=== PATIENT | female | born 1935 | race Caucasian/White ===

== ENCOUNTER 2021-10-23 20:15 | Emergency (ER) | payer MEDICARE ==
[~2021-10-23] VITALS: Ht 149.9 cm; Wt 61.2 kg
[2021-10-23 20:45] VITALS: BP 169/89
[2021-10-23] MEDS ORDERED: TYLENOL PO STA (20:45)
--- NOTE | 2021-10-23 20:45 | NUR ---
blood drawn from left AC x 1 stick.
[2021-10-23 21:08] LABS: BASOPHIL # 0.1 10^3/uL (0.0-0.1); BASOPHIL % 1.2 % (0.0-0.2); EOSINOPHIL # 0.2 10^3/uL (0.0-0.2); EOSINOPHIL % 3.2 % (0.0-5.0); LYMPHOCYTES # 1.82 10^3/uL1 (1.0-4.8); LYMPHOCYTES % 30.7 % (24.0-44.0); MEAN CORP HGB 30.1 pg (26-34); MONOCYTES # 0.5 10^3/uL (0.3-0.8); MONOCYTES % 7.9 % (5.0-12.0); NEUTROPHIL # 3.4 10^3/uL (1.8-7.7); NEUTROPHILS % 56.8 % (41.0-85.0); PLATELET COUNT 219 10^3/uL (150-400); RED CELL DISTRIBUTION WIDTH 14.2 % (11.5-14.5)
[2021-10-23 21:27] LABS: CARBON DIOXIDE 29.1 mmol/L (20.0-32)
--- NOTE | 2021-10-23 21:29 | DIREP ---
PROCEDURE:CT HEAD OR BRAIN W/O CONTRAST COMPARISON:None. INDICATIONS:head injury TECHNIQUE:CT images were created without intravenous contrast. FINDINGS: VENTRICLES:There is mild prominence of the ventricles and cortical sulci consistent with age related involutional changes. CEREBRUM:Small foci of diminished attenuation in the supratentorial white matter consistent with mild leukoaraiosis. CEREBELLUM:Negative. BRAINSTEM:Negative. BASAL CISTERNS:Negative. HEMORRHAGE:No MASS LESION:No ACUTE INFARCT:No SKULL:Normal. SINUSES:Normal. OTHER:None CONCLUSION:Atrophy and white matter disease. No acute intracranial findings. Dictated by: Gutierrez Mckeon MD on 10/23/2021 at 09:26 PM
--- NOTE | 2021-10-23 21:52 | ER.PDOC ---
General Chief Complaint: Headache Stated Complaint: HEADACHE Time seen by MD: 18:40 Source: patient Exam Limitations: no limitations History of Present Illness Initial Comments 86-year-old female who was in the shower and hit her head on the shower farhad. No loss of consciousness. No laceration, small bump in the area. No headache, no nausea or vomiting. No grogginess or confusion. No blood thinners Occurred: just prior to arrival Where: home Severity: mild Location: frontal Method of Injury: direct blow Past Medical History Medical History: hypertension, thyroid disease, other Surgical History: hysterectomy, knee, tonsillectomy Social History Alcohol Use: none Drug Use: none Review of Systems All Other Systems: Reviewed and Negative Physical Exam General Appearance: Alert, No Apparent Distress Head: Contusions Eye: PERRL, EOMI ENT: Nml external inspection Neck: non-tender, painless ROM Cardiovascular/Respiratory: Regular Rate, Rhythm, Normal Peripheral Pulses Gastrointestinal: Soft Back: Normal Inspection Extremities: Normal Inspection, No Pedal Edema NEURO/PSYCH: Alert, Oriented x3, Cooperative Cranial Nerves: Normal Speech Motor/Sensory: No Motor Deficit, No Sensory Deficit Skin: Normal Color Lymphatic: No Adenopathy Jolynn Coma Score Best Eye Response: (4) Open Spontaneously Best Verbal Response: (5) Oriented Best Motor Response: (6) Obeys Commands Jolynn Total: 15 Results/Orders Results/Orders Orders - BHARTI OLEARY MD Ct Head Wo Contrast (10/23/21 20:45) Cbc With Auto Diff (10/23/21 20:45) Comprehensive Metabolic Panel (10/23/21 20:45) PT (10/23/21 20:45) Acetaminophen (Tylenol) (10/23/21 20:45) Vital Signs Date Time Temp Pulse Resp B/P (MAP) Pulse Ox O2 Delivery O2 Flow Rate FiO2 10/23/21 20:45 97.6 59 16 169/89 (115) 98 Room Air* 0 21 10/23/21 20:45 97.6 59 16 98 10/23/21 20:45 97.6 59 16 Laboratory Tests Test 10/23/21 20:58 White Blood Count 5.9 10^3/uL (4.5-11.0) Red Blood Count 4.38 10^6/uL (4.00-5.20) Hemoglobin 13.2 g/dL (12.0-15.0) Hematocrit 40.9 % (36.0-46.0) Mean Corpuscular Volume 93.4 fL (78-100) Mean Corpuscular Hemoglobin 30.1 pg (26-34) Mean Corpuscular Hemoglobin Concent 32.3 g/dL (33-36.5) L Red Cell Distribution Width 14.2 % (11.5-14.5) Platelet Count 219 10^3/uL (150-400) Mean Platelet Volume 11.2 fL (7.8-11.0) H Neutrophils (%) (Auto) 56.8 % (41.0-85.0) Lymphocytes (%) (Auto) 30.7 % (24.0-44.0) Monocytes (%) (Auto) 7.9 % (5.0-12.0) Neutrophils # (Auto) 3.4 10^3/uL (1.8-7.7) Lymphocytes # (Auto) 1.82 10^3/uL1 (1.0-4.8) Monocytes # (Auto) 0.5 10^3/uL (0.3-0.8) Absolute Immature Granulocyte (auto 0.01 10^3 u/L (0-2) Absolute Eosinophils (auto) 0.2 10^3/uL (0.0-0.2) Immature Granulocytes % 0.20 % (0.00-0.50) Eosinophils % 3.2 % (0.0-5.0) Basophils % 1.2 % (0.0-0.2) H Basophils # 0.1 10^3/uL (0.0-0.1) Prothrombin Time 10.1 SEC (9.1-11.5) Prothrombin Time INR (Non-Therap) 1.0 Sodium Level 143 mmol/L (132-145) Potassium Level 4.2 mmol/L (3.6-5.2) Chloride Level 108.0 mmol/L (96-109) Carbon Dioxide Level 29.1 mmol/L (20.0-32) Anion Gap 10.1 Blood Urea Nitrogen 23 mg/dL (7-18) H Creatinine 1.00 mg/dL (0.59-1.40) Estimated GFR () 63.6 (>/=60) Est GFR (CKD-EPI)(Non-Afr [place] Islander) 52.6 (>/=60) BUN/Creatinine Ratio 23.0 Glucose Level 94 mg/dL (70-110) Calcium Level 9.7 mg/dL (8.4-10.5) Total Bilirubin 0.2 mg/dL (0.2-1.0) Aspartate Amino Transferase (AST) 16 U/L (0-35) Alanine Aminotransferase (ALT) 19 U/L (12-78) Alkaline Phosphatase 64 U/L (50-136) Total Protein 7.4 g/dL (6.4-8.2) Albumin 3.8 g/dL (3.4-5.0) Globulin 3.6 Albumin/Globulin Ratio 1.055 Progress Progress She has no headache, normal CT, they came out of an abundance of caution. Counseled her on management of her scalp contusion ER DEPART Departure Time of Disposition: 19:51 Disposition: 01 HOME / SELF CARE / HOMELESS Impression: Primary Impression: Scalp contusion Condition: Stable Referrals: PCP,UNKNOWN (PCP) PRIMARY CARE PROVIDER Duration or Time Spent with Pa: BHARTI Dickey MD Oct 23, 2021 21:52
[2021-10-23 21:56] VITALS: BP 146/82
== END 2021-10-23 21:57 | disposition home or self-care (01) ==
LOC: ER 20:15
DX: S00.03XA Contusion of scalp, initial encounter (principal); E07.9 Disorder of thyroid, unspecified; I10 Essential (primary) hypertension; W18.00XA Striking against unspecified object with subsequent fall, initial encounter; Y93.89 Activity, other specified; Y92.009 Unspecified place in unspecified non-institutional (private) residence as the place of occurrence of the external cause; Y99.8 Other external cause status; Z90.710 Acquired absence of both cervix and uterus
CPT/HCPCS: 36415; 70450; 80053; 85025; 85610; 99284

== ENCOUNTER 2021-12-14 07:26 | Inpatient (IN) | payer MEDICARE ==
[~2021-12-14] VITALS: Ht 149.9 cm; Wt 63.2 kg
[2021-12-14 07:26] VITALS: BP 158/51
--- NOTE | 2021-12-14 07:26 | NUR ---
ARRIVAL PATIENT ARRIVED TO ED4 VIA GURNEY BY [facility], C/O CONGESTION,WEAKNESS AND CONFUSION, FAMILY CONCERNED AND CALLED EMS TO BRING TO THE ED FOR EVAL, EMS INITIATED A 20G TO THE LEFT AC INFUSING LR AND GAVE TYLENOL 1000MG BY MOUTH FOR FEVER, ASSISTED TO ED4 GURNEY, VITAL SIGNS TAKEN AND DOCTOR NOTIFIED OF PATIENT'S ARRIVAL.
[2021-12-14] MEDS ORDERED: TYLENOL PO STA (07:28)
--- NOTE | 2021-12-14 07:46 | ER.PDOC ---
General Chief Complaint: Requesting Medical Care Stated Complaint: GENERAL TRAVEL OUT OF US: No Time seen by MD: 07:35 Source: patient, family, EMS Exam Limitations: other (dementia) History of Present Illness Initial Comments 86 yo F has had some back pain and low grade fever this morning, more confused than usual (there is some baseline dementia.) Has had a mild cough for perhaps a week or more. Allergies: Coded Allergies: Macrolide Antibiotics (Verified Allergy, Unknown, 12/14/21) Penicillins (Verified Allergy, Unknown, ., 12/14/21) Sulfa (Sulfonamide Antibiotics) (Verified Allergy, Unknown, ., 12/14/21) adhesive (Verified Allergy, Unknown, 12/14/21) ciprofloxacin (Verified Allergy, Unknown, 12/14/21) lactase (Verified Allergy, Unknown, 12/14/21) nitrofurantoin (Verified Allergy, Unknown, 12/14/21) omeprazole (Verified Allergy, Unknown, 12/14/21) sulfamethoxazole (Verified Allergy, Unknown, ., 12/14/21) trimethoprim (Verified Allergy, Unknown, ., 12/14/21) Home Meds Reported Medications Fluoxetine Hcl (FLUOXETINE HCL) 10 Mg Capsule, 1 CAP PO DAILY, #30 CAP 12/14/21 Metoprolol Tartrate 50MG (LOPRESSER 50MG) 50 Mg Tablet, 1 TAB PO BID, #180 TAB 3 Refills 12/14/21 Levothyroxine Sodium (LEVOTHYROXINE SODIUM) 25 Mcg Tablet, 1 TAB PO DAILY, #90 TAB 3 Refills 12/14/21 Memantine Hcl (NAMENDA) 10 Mg Tablet, 1 TAB PO BID, #180 TAB 1 Refill 12/14/21 Quetiapine Fumarate (SEROQUEL) 25 Mg Tablet, 1 TAB PO HS, #30 TAB 12/14/21 Lisinopril (LISINOPRIL) 20 Mg Tablet, 1 TAB PO DAILY, #90 TAB 3 Refills 12/14/21 Past Medical History Medical History: hypertension, thyroid disease, other Surgical History: hysterectomy, knee, tonsillectomy Family History Significant Family History: no pertinent family hx Social History Smoking: non-smoker Drug Use: none Reviewed Nursing Reviewed: Vital Signs, Abn. Noted, Nursing Assessment Review of Systems Constitutional: fever EENTM: no symptoms reported Respiratory: cough (mild, x 1 week or more) Cardiovascular: no symptoms reported Gastrointestinal: denies abdominal pain Genitourinary: denies dysuria, denies frequency Musculoskeletal: back pain (lower, more lumbar and nonspecific in character) Skin: no symptoms reported Psychiatric/Neurological: see HPI (some modestly increased confusion from baseline) Hematologic/Lymphatic: no symptoms reported Immunological/Allergic: no symptoms reported All Other Systems: Reviewed and Negative Physical Exam General Appearance: No Apparent Distress EENT: eyes nml inspection Neck: Non-Tender Respiratory: chest non-tender, lungs clear (I don't note any coughing while I'm with patient) CVS: reg rate & rhythm Gastrointestinal: Normal Bowel Sounds, Non Tender Back: Normal Inspection (nothing radicular or particularly concerning about back pain) Extremities: Normal Range of Motion, Non-Tender Neurologic/Psychiatric: Alert, Other (no obvious deficit, seems benignly mild- moderately demented without focal neurologic deficit) Skin: Normal Color Results/Orders Results/Orders Orders - KAJAL ROBERT MD Covid19 Antigen Denise Stephanie (12/14/21 07:28) Cbc With Auto Diff (12/14/21 07:28) Comprehensive Metabolic Panel (12/14/21 07:28) Urinalysis (12/14/21 07:28) Xr Chest 1v (12/14/21 07:28) Acetaminophen (Tylenol) (12/14/21 07:28) Urine Culture (12/14/21 08:30) Ceftriaxone Sodium (Rocephin) (12/14/21 09:24) Ceftriaxone Sodium (Rocephin) (12/14/21 09:36) 0.9 % Sodium Chloride (Ns 100ml) (12/14/21 09:36) Vital Signs Date Time Temp Pulse Resp B/P (MAP) Pulse Ox O2 Delivery O2 Flow Rate FiO2 12/14/21 09:11 98.1 60 18 139/48 (78) 95 Room Air* 0 21 12/14/21 07:26 98.1 68 18 158/51 (86) 95 Room Air* 0 21 12/14/21 07:26 98.1 68 18 95 12/14/21 07:26 98.1 68 18 Administered Medications Medications (Trade) Dose Ordered Sig/Jonny Route PRN Reason Start Time Stop Time Status Last Admin Dose Admin Ceftriaxone Sodium 2000 mg/ Sodium Chloride 100 ml @ 200 mls/hr STAT STAT IV 12/14/21 09:24 12/14/21 09:53 UNV 12/14/21 09:32 200 MLS/HR Laboratory Tests Test 12/14/21 00:00 12/14/21 07:43 12/14/21 08:30 SARS-CoV-2 Antigen (Rapid) POSITIVE (NEGATIVE) *A White Blood Count 7.5 10^3/uL (4.5-11.0) Red Blood Count 3.94 10^6/uL (4.00-5.20) L Hemoglobin 11.9 g/dL (12.0-15.0) L Hematocrit 35.9 % (36.0-46.0) L Mean Corpuscular Volume 91.1 fL (78-100) Mean Corpuscular Hemoglobin 30.2 pg (26-34) Mean Corpuscular Hemoglobin Concent 33.1 g/dL (33-36.5) Red Cell Distribution Width 15.0 % (11.5-14.5) H Platelet Count 165 10^3/uL (150-400) Mean Platelet Volume 11.1 fL (7.8-11.0) H Neutrophils (%) (Auto) 77.8 % (41.0-85.0) Lymphocytes (%) (Auto) 11.8 % (24.0-44.0) L Monocytes (%) (Auto) 10.0 % (5.0-12.0) Neutrophils # (Auto) 5.8 10^3/uL (1.8-7.7) Lymphocytes # (Auto) 0.88 10^3/uL1 (1.0-4.8) L Monocytes # (Auto) 0.8 10^3/uL (0.3-0.8) Absolute Immature Granulocyte (auto 0.01 10^3 u/L (0-2) Absolute Eosinophils (auto) 0.0 10^3/uL (0.0-0.2) Immature Granulocytes % 0.10 % (0.00-0.50) Eosinophils % 0.0 % (0.0-5.0) Basophils % 0.3 % (0.0-0.2) H Basophils # 0.0 10^3/uL (0.0-0.1) Sodium Level 141 mmol/L (132-145) Potassium Level 3.6 mmol/L (3.6-5.2) Chloride Level 107.0 mmol/L (96-109) Carbon Dioxide Level 23.9 mmol/L (20.0-32) Anion Gap 13.7 Blood Urea Nitrogen 14 mg/dL (7-18) Creatinine 1.02 mg/dL (0.59-1.40) Estimated GFR () 62.2 (>/=60) Est GFR (CKD-EPI)(Non-Afr [place]) 51.4 (>/=60) BUN/Creatinine Ratio 13.0 Glucose Level 116 mg/dL (70-110) H Calcium Level 8.8 mg/dL (8.4-10.5) Total Bilirubin 0.5 mg/dL (0.2-1.0) Aspartate Amino Transferase (AST) 22 U/L (0-35) Alanine Aminotransferase (ALT) 17 U/L (12-78) Alkaline Phosphatase 57 U/L (50-136) Total Protein 6.5 g/dL (6.4-8.2) Albumin 3.1 g/dL (3.4-5.0) L Globulin 3.4 Albumin/Globulin Ratio 0.911 Urine Collection Type UNKNOWN Urine Color YELLOW Urine Appearance CLOUDY Urine Bilirubin NEGATIVE (NEGATIVE) Urine Ketones NEGATIVE (NEGATIVE) Urine Specific Caroline 1.020 (1.005-1.030) Urine pH 5.5 (4.5-8.0) Urine Protein NEGATIVE (NEGATIVE) Urine Urobilinogen 0.2 E.U./dL (0.2) Urine Nitrate NEGATIVE (NEGATIVE) Urine Leukocyte Esterase 1+ (NEGATIVE) H Urine Glucose (Auto)(UA) NEGATIVE (NEGATIVE) Urine Blood TRACE-INTACT (NEGATIVE) H Urine RBC 0-2 RBC/HPF (NONE SEEN) Urine WBC TooNumerousToCount WBC/HPF (0-2) Urine Squamous Epithelial Cells FEW (<=FEW) Urine Bacteria MANY (NONE SEEN) H Progress Progress Florid UTI, as we had suspected. Incidentally Covid positive, symptoms greater than a week, fully vaccinated with last dose this past spring - nothing really to be done there. There is desire from the daughter to give treatment of some kind for the Covid positivity; daughter indicates that contrary to her mother's assertion of weeklong symptoms, she's only had a cough for a day or so. I have reviewed our options. Pt will require admission for IV antibiotics for the UTI and weakness therefrom. The CXR, RA sat, and lung exam are clear. Neither bebtelovimab nor Paxlovid are authorized for inpatient use, and admission is necessary. I have therefore discussed remdesivir with the hospitalist, but he advises against its use because of limited benefit and multiple side effects. I will apprise family; we will proceed with admission. EKG/XRAY/CT/US XRAY: chest XRAY Comments: NAD ER DEPART Departure Time of Disposition: 10:10 Disposition: 02 SHORT TERM HOSPITAL Impression: Primary Impression: COVID-19 Additional Impression: Urinary tract infection Condition: Improved Referrals: PCP,UNKNOWN (PCP) PRIMARY CARE PROVIDER Duration or Time Spent with Pa: 20 Problem Qualifiers KAJAL ROBERT MD Dec 14, 2021 07:46
[2021-12-14 07:48] LABS: BASOPHIL % 0.3 % (0.0-0.2); LYMPHOCYTES # 0.88 10^3/uL1 (1.0-4.8); LYMPHOCYTES % 11.8 % (24.0-44.0); MEAN CORP HGB 30.2 pg (26-34); MONOCYTES # 0.8 10^3/uL (0.3-0.8); NEUTROPHIL # 5.8 10^3/uL (1.8-7.7); NEUTROPHILS % 77.8 % (41.0-85.0)
[2021-12-14 08:04] LABS: CARBON DIOXIDE 23.9 mmol/L (20.0-32)
[2021-12-14] MEDS ORDERED: FLUO10CA17 PO (08:07)
[2021-12-14] MEDS ORDERED: LISI20TA21 PO (08:07)
[2021-12-14] MEDS ORDERED: LEVO25TA4 PO (08:07)
[2021-12-14] MEDS ORDERED: METO50TA6 PO (08:07)
[2021-12-14] MEDS ORDERED: QUET25TA5 PO (08:07)
[2021-12-14] MEDS ORDERED: MEMA10TA PO (08:07)
--- NOTE | 2021-12-14 08:09 | DIREP ---
PROCEDURE:CHEST 1 VIEW COMPARISON:None. INDICATIONS:cough FINDINGS: LUNGS/PLEURA:Reticular interstitial scarring in the lungs and/or interstitial edema. No focal consolidation. VASCULATURE:Mild pulmonary vascular prominence. CARDIAC:Borderline cardiomegaly. MEDIASTINUM:Aortic knob calcifications. BONES:Bilateral shoulder girdle degenerative changes. OTHER:Negative. CONCLUSION: 1. Increased reticular interstitial prominence either scarring, interstitial edema or combination thereof. 2. Mild pulmonary vascular prominence possibly accentuated by portable technique, correlate for clinical evidence of mild CHF. Dictated by: Delgado Reno M.D. on 12/14/2021 at 08:07 AM
[2021-12-14 08:51] LABS: BILIRUBIN,URINE NEGATIVE (NEGATIVE); UROBILINOGEN,URINE 0.2 E.U./dL (0.2)
--- NOTE | 2021-12-14 09:00 | NUR ---
MONIQUE ROBERT ATTEMPTED TO CALL DOCTOR AMAYA, LEFT MESSAGE.
[2021-12-14 09:11] VITALS: BP 139/48
[2021-12-14] MEDS ORDERED: ROCEPHIN 2,000 MG in NS 100ML 100 ML IV STA (09:24)
[2021-12-14] MEDS ORDERED: ROCEPHIN ONE (09:36)
[2021-12-14] MEDS ORDERED: NS 100ML 100 ML IV ONE (09:36)
--- NOTE | 2021-12-14 10:01 | NUR ---
MONIQUE ROBERT ON THE PHONE WITH DOCTOR AMAYA AT THIS TIME.
[2021-12-14] MEDS ORDERED: NS 1000ML 1,000 ML IV STA (10:10)
--- NOTE | 2021-12-14 10:40 | NUR ---
INTAKE PATIENT GIVEN CRACKERS,APPLESAUSE AND BREAKFAST BAR, FAMILY AT BEDSIDE ASSISTING AT THIS TIME.
[2021-12-14 10:47] VITALS: BP 126/54
--- NOTE | 2021-12-14 11:45 | NUR ---
ARRIVAL RECEIVED PT ON UNIT TO ROOM 302 FROM ER AT THIS TIME VIA STRETCHER. PT TRANSFERRED TO BED IN ROOM ACCOMPANIED BY THIS NURSE, GEORGE MOSER, AND GEORGE SPANGLER. PT SHOWS NO S/S OF ACUTE DISTRESS. BED IN LOWEST POSITION, LOCKED, SIDE RAILS X2, CALL LIGHT WITHIN REACH. RECEIVED REPORT FROM GEORGE SPANGLER. THIS NURSE INITIATED ADMISSION PER PROTOCOL.
[2021-12-14 12:11] VITALS: BP 149/56
[2021-12-14] MEDS ORDERED: D5W 1000ML 1,000 ML ONE (13:36)
[2021-12-14] MEDS ORDERED: TYLENOL PO PRN (14:00)
[2021-12-14] MEDS: D5W-1/2NS 1000ML 1,000 ML IV SCH (14:26)
[2021-12-14] MEDS: PEPCID PO SCH (15:30)
[2021-12-14] MEDS ORDERED: PEPCID ONE (15:30)
[2021-12-14 16:19] VITALS: BP 142/62
[2021-12-14 20:28] VITALS: BP 169/67
[2021-12-14] MEDS: LOPRESSOR PO SCH (21:34)
[2021-12-14] MEDS: SEROQUEL PO SCH (21:34)
[2021-12-14] MEDS: NAMENDA PO SCH (21:34)
[2021-12-15 01:05] VITALS: BP 151/59
[2021-12-15] MEDS: D5W-1/2NS 1000ML 1,000 ML IV SCH ×2 (02:50→16:10)
[2021-12-15 04:39] VITALS: BP 111/53
[2021-12-15 05:10] LABS: BASOPHIL % 0.1 % (0.0-0.2); LYMPHOCYTES # 1.35 10^3/uL1 (1.0-4.8); LYMPHOCYTES % 17.8 % (24.0-44.0); MEAN CORP HGB 29.7 pg (26-34); MONOCYTES # 0.8 10^3/uL (0.3-0.8); MONOCYTES % 10.4 % (5.0-12.0); NEUTROPHIL # 5.4 10^3/uL (1.8-7.7); NEUTROPHILS % 71.7 % (41.0-85.0); PLATELET COUNT 145 10^3/uL (150-400); RED CELL DISTRIBUTION WIDTH 15.4 % (11.5-14.5)
[2021-12-15 05:28] LABS: CARBON DIOXIDE 21.6 mmol/L (20.0-32)
[2021-12-15] MEDS: LEVOTHYROXINE SODIUM PO SCH (06:04)
[2021-12-15 08:00] VITALS: BP 136/55
[2021-12-15] MEDS ORDERED: KCL 20MEQ/100ML 100 ML IV STA (08:18)
[2021-12-15] MEDS ORDERED: POTASSIUM CHLORIDE PO ONE (08:30)
[2021-12-15] MEDS: VITAMIN C PO SCH (08:49)
[2021-12-15] MEDS: NAMENDA PO SCH ×2 (08:49→21:07)
[2021-12-15] MEDS: PROZAC PO SCH (08:49)
[2021-12-15] MEDS: ZINC SULFATE PO SCH (08:49)
[2021-12-15] MEDS: LOPRESSOR PO SCH ×2 (08:50→21:07)
[2021-12-15] MEDS: ZESTRIL PO SCH (08:51)
[2021-12-15] MEDS: ROCEPHIN 1,000 MG in NS 100ML 100 ML IV SCH (09:15)
[2021-12-15] MEDS: PEPCID PO SCH ×2 (09:16→17:40)
[2021-12-15 12:00] VITALS: BP 122/60
[2021-12-15] MEDS ORDERED: NS IV SCH (12:00)
[2021-12-15] MEDS ORDERED: VANCOMYCIN HCL IV SCH (12:00)
[2021-12-15] MEDS ORDERED: VANCOMYCIN HCL 1 GM in NS 250ML 250 ML IV SCH (12:00)
--- NOTE | 2021-12-15 12:00 | PCM.HP ---
History of Present Illness Reason for Visit: Weakness and altered mental status History of Present Illness 86 yo F With past medical history of hypertension, hypothyroidism, dementia, among others was brought to the emergency room by her daughter with more confused than usual (there is some baseline dementia.) Has had a mild cough for perhaps a week or more. Patient tested positive for COVID-19. Patient also found to have UTI.Septic work-up done.Started on IV antibiotic.Patient is being admitted to hospital for further management. Today urine culture growing gram-positive cocci Awaiting ID and sensitivity. Family history reviewed and noncontributory On physical exam Vital Signs Date Time Temp Pulse Resp B/P (MAP) Pulse Ox O2 Delivery O2 Flow Rate FiO2 12/15/21 09:44 Room Air 0.00 12/15/21 08:51 111/53 12/15/21 08:00 98.4 60 18 92 21 Awake, following simple commands oriented x1 Head and neck normocephalic atraumatic, Dry mucous membrane Neck is supple no JVD Chest fair bilateral air entry Heart S1-S2 regularSounds present Genitourinary suprapubic tenderness Abdomen soft mild suprapubic tenderness Neuro awake, oriented x1, moving extremity Psych unable to assess Past Medical History Cardiac: HTN SURVEILLANCE DUAL RATE OFFICER: Dementia Endocrine: Hypothyroidism Past Surgical History: No pertinent hx Past Social History Smoke: No Alcohol: none Drugs: None Lives: with Family Review of Systems Constitutional: Other (Unable to obtain due to patient medical condition.) Allergies: Coded Allergies: Macrolide Antibiotics (Verified Allergy, Unknown, 12/14/21) Penicillins (Verified Allergy, Unknown, ., 12/14/21) Sulfa (Sulfonamide Antibiotics) (Verified Allergy, Unknown, ., 12/14/21) adhesive (Verified Allergy, Unknown, 12/14/21) ciprofloxacin (Verified Allergy, Unknown, 12/14/21) lactase (Verified Allergy, Unknown, 12/14/21) nitrofurantoin (Verified Allergy, Unknown, 12/14/21) omeprazole (Verified Allergy, Unknown, 12/14/21) sulfamethoxazole (Verified Allergy, Unknown, ., 12/14/21) trimethoprim (Verified Allergy, Unknown, ., 12/14/21) Scheduled Fluoxetine Hcl (Fluoxetine Hcl), 1 CAP PO DAILY, (Reported) Levothyroxine Sodium (Levothyroxine Sodium), 1 TAB PO DAILY, (Reported) Lisinopril (Lisinopril), 1 TAB PO DAILY, (Reported) Memantine Hcl (Namenda), 1 TAB PO BID, (Reported) Metoprolol Tartrate 50MG (Lopresser 50MG), 1 TAB PO BID, (Reported) Quetiapine Fumarate (Seroquel), 1 TAB PO HS, (Reported) Assessment/Plan Assessment/Plan Assessment/Plan 86 yo F With past medical history of hypertension, hypothyroidism, dementia, among others was brought to the emergency room by her daughter with more confused than usual (there is some baseline dementia.) Has had a mild cough for perhaps a week or more. Patient tested positive for COVID-19. Patient also found to have UTI.Septic work-up done.Started on IV antibiotic.Patient is being admitted to hospital for further management. Today urine culture growing gram-positive cocci Awaiting ID and sensitivity. Plan Admit Septic work-up was done Continue IV antibiotics,Ceftriaxone, will add vancomycin, urine culture positive cocci, still awaiting ID and sensitivity IV fluids Reconcile home meds GI and DVT prophylaxis as appropriate Expect length of stay more than 1 midnight Case discussed with ED physician and patient daughter Problems: (1) Metabolic encephalopathy ICD Code: G93.41 - Metabolic encephalopathy SNOMED: 77286328 (2) Dementia ICD Code: F03.90 - Unspecified dementia, unspecified severity, without behavioral disturbance, psychotic disturbance, mood disturbance, and anxiety SNOMED: 16005598 (3) COVID-19 ICD Code: U07.1 - COVID-19 SNOMED: 536580246 (4) Urinary tract infection ICD Code: N39.0 - Urinary tract infection, site not specified SNOMED: 49472293 (5) Hypothyroidism ICD Code: E03.9 - Hypothyroidism, unspecified SNOMED: 48139353 (6) Hypertension ICD Code: I10 - Essential (primary) hypertension SNOMED: 62989895 MONIQUE BLANK MD Dec 15, 2021 12:00
--- NOTE | 2021-12-15 16:22 | NUR ---
DISCHARGE PLANNING- HOME WITH DAUGHTER CM VISITED WITH DAUGHTER CASSY BY PHONE. PER DAUGHTER CASSY PATIENT LIVES IN [place] AND IS HERE VISITING. PT HAS BEEN HERE BOUT 6 WEEKS SINCE THE END OF OCTOBER AND THE PLAN WAS FOR HER TO GO BACK TO HER HOME WITH THE OTHER DAUGHTER THAT LIVES WITH PATIENT. PT HAS A WALKING SHOWER AT HER HOME BUT AT [facility] SHE USES A SHOWER CHAIR AND A WALKER WHEN AMBULATING. PCP IS IN [place] AND SHE DOES NOT HAVE THE NAME. CM EDUCATED ON SNF AND HH. CASSY VERBALLY DECLINED ADDITIONAL RESOURCES AT THIS TIME. DISCHARGE GOAL IS FOR PATIENT TO D/C WITH CASSY TO HER HOME AND WHEN PATIENT READY CASSY WILL TRANSPORT HER TO [place] AND GET HER A FOLLOW UP WITH HER PCP. NO FURTHER NEEDS NOTED AT THIS TIME.
[2021-12-15] MEDS ORDERED: KCL 20MEQ/100ML 100 ML IV ONE (17:00)
[2021-12-15 19:27] VITALS: BP 147/66
[2021-12-15] MEDS: SEROQUEL PO SCH (21:07)
[2021-12-15 23:49] VITALS: BP 146/56
[2021-12-16] MEDS: D5W-1/2NS 1000ML 1,000 ML IV SCH (02:02)
[2021-12-16] MEDS: LEVOTHYROXINE SODIUM PO SCH (06:44)
[2021-12-16 08:00] VITALS: BP 135/70
[2021-12-16 08:30] LABS: BASOPHIL % 0.4 % (0.0-0.2); EOSINOPHIL # 0.1 10^3/uL (0.0-0.2); EOSINOPHIL % 2.1 % (0.0-5.0); LYMPHOCYTES # 1.25 10^3/uL1 (1.0-4.8); LYMPHOCYTES % 23.9 % (24.0-44.0); MEAN CORP HGB 29.7 pg (26-34); MONOCYTES # 0.5 10^3/uL (0.3-0.8); MONOCYTES % 10.2 % (5.0-12.0); NEUTROPHIL # 3.3 10^3/uL (1.8-7.7); NEUTROPHILS % 63.2 % (41.0-85.0); PLATELET COUNT 139 10^3/uL (150-400); RED CELL DISTRIBUTION WIDTH 15.3 % (11.5-14.5)
[2021-12-16 08:39] LABS: CARBON DIOXIDE 24.5 mmol/L (20.0-32)
[2021-12-16] MEDS: PROZAC PO SCH (08:46)
[2021-12-16] MEDS: NAMENDA PO SCH ×2 (08:46→21:23)
[2021-12-16] MEDS: ROCEPHIN 1,000 MG in NS 100ML 100 ML IV SCH (08:46)
[2021-12-16] MEDS: PEPCID PO SCH ×2 (08:46→17:32)
[2021-12-16] MEDS: ZINC SULFATE PO SCH (08:47)
[2021-12-16] MEDS: ZESTRIL PO SCH (08:47)
[2021-12-16] MEDS: LOPRESSOR PO SCH ×2 (08:47→21:23)
[2021-12-16] MEDS: VITAMIN C PO SCH (08:47)
--- NOTE | 2021-12-16 10:24 | PRM.PN ---
Subjective Subjective Date: Dec 16, 2021 Time: 09:00 Subjective Patient daughter that her mother sounds more congested today.Also she thinks that the patient is more confused than her baseline. Patient does not complain. Will get chest x-ray. I will hold IV fluids for now.Urine culture growing gram- positive organism, ID and sensitivity pending. Currently on IV vancomycin and ceftriaxone awaiting CT results Patient History: Patient reports no known family medical history. Review of Systems Constitutional: Other (Unable to obtain due to patient medical condition.) Allergies: Coded Allergies: Macrolide Antibiotics (Verified Allergy, Unknown, 12/14/21) Penicillins (Verified Allergy, Unknown, ., 12/14/21) Sulfa (Sulfonamide Antibiotics) (Verified Allergy, Unknown, ., 12/14/21) adhesive (Verified Allergy, Unknown, 12/14/21) ciprofloxacin (Verified Allergy, Unknown, 12/14/21) lactase (Verified Allergy, Unknown, 12/14/21) nitrofurantoin (Verified Allergy, Unknown, 12/14/21) omeprazole (Verified Allergy, Unknown, 12/14/21) sulfamethoxazole (Verified Allergy, Unknown, ., 12/14/21) trimethoprim (Verified Allergy, Unknown, ., 12/14/21) Scheduled Fluoxetine Hcl (Fluoxetine Hcl), 1 CAP PO DAILY, (Reported) Levothyroxine Sodium (Levothyroxine Sodium), 1 TAB PO DAILY, (Reported) Lisinopril (Lisinopril), 1 TAB PO DAILY, (Reported) Memantine Hcl (Namenda), 1 TAB PO BID, (Reported) Metoprolol Tartrate 50MG (Lopresser 50MG), 1 TAB PO BID, (Reported) Quetiapine Fumarate (Seroquel), 1 TAB PO HS, (Reported) Objective Vitals and I/O Vital Sign - Last 24 Hours 12/15/21 12/15/21 12/15/21 12/15/21 11:00 12:00 17:54 19:27 Temp 98.0 99.0 Pulse 61 56 Resp 18 16 18 B/P (MAP) 122/60 (80) 147/66 (93) Pulse Ox 93 95 O2 Delivery Room Air Room Air* Room Air* Room Air* O2 Flow Rate 0.00 0 0 0 FiO2 21 21 21 10/7/12/15/21 12/16/21 12/16/21 19:42 23:49 08:31 08:47 Temp 97.9 Pulse 60 Resp 18 B/P (MAP) 146/56 (86) 111/53 Pulse Ox 97 O2 Delivery Room Air Room Air* Room Air O2 Flow Rate 0.00 0 FiO2 21 Intake and Output 12/16/21 07:00 Intake Total 472 ml Balance 472 ml General: Alert, No acute distress HEENT: Atraumatic, PERRLA Neck: Supple Lungs: Other (Diminished air entry both bases.) Heart: Regular rate, Normal S1, Normal S2 Abdomen: Normal bowel sounds, Other (Mild distention) Extremities: No clubbing, No cyanosis Skin: No significant lesion Neuro: Normal speech, Normal tone, Other (Moving extremities) Psych/Mental Status: Mood NL All Results(Lab/Rad) Laboratory Tests Test 12/16/21 08:20 White Blood Count 5.2 10^3/uL Red Blood Count 3.67 10^6/uL Hemoglobin 10.9 g/dL Hematocrit 34.2 % Mean Corpuscular Volume 93.2 fL Mean Corpuscular Hemoglobin 29.7 pg Mean Corpuscular Hemoglobin Concent 31.9 g/dL Red Cell Distribution Width 15.3 % Platelet Count 139 10^3/uL Mean Platelet Volume 11.4 fL Neutrophils (%) (Auto) 63.2 % Lymphocytes (%) (Auto) 23.9 % Monocytes (%) (Auto) 10.2 % Neutrophils # (Auto) 3.3 10^3/uL Lymphocytes # (Auto) 1.25 10^3/uL1 Monocytes # (Auto) 0.5 10^3/uL Absolute Immature Granulocyte (auto 0.01 10^3 u/L Absolute Eosinophils (auto) 0.1 10^3/uL Immature Granulocytes % 0.20 % Eosinophils % 2.1 % Basophils % 0.4 % Basophils # 0.0 10^3/uL Sodium Level 143 mmol/L Potassium Level 3.5 mmol/L Chloride Level 110.0 mmol/L Carbon Dioxide Level 24.5 mmol/L Glucose Level 102 mg/dL Blood Urea Nitrogen 8 mg/dL Creatinine 0.83 mg/dL Calcium Level 8.1 mg/dL Anion Gap 12.0 Estimated GFR () 78.9 Est GFR (CKD-EPI)(Non-Afr Canadian) 65.2 BUN/Creatinine Ratio 9.0 Current Medications Medications (Trade) Dose Ordered Sig/Jonny Route PRN Reason Start Time Stop Time Status Last Admin Dose Admin Acetaminophen (Tylenol) 500 mg STAT STAT PO 12/14/21 07:28 12/14/21 07:35 DC Ceftriaxone Sodium 2000 mg/ Sodium Chloride 100 ml @ 200 mls/hr STAT STAT IV 12/14/21 09:24 12/14/21 10:41 DC 12/14/21 09:32 Ceftriaxone Sodium (Rocephin) 1,000 mg STK-MED ONCE .ROUTE 12/14/21 09:36 12/14/21 09:37 DC Sodium Chloride 100 ml @ ud STK-MED ONCE IV 12/14/21 09:36 12/14/21 09:37 DC Sodium Chloride 1,000 ml @ 0 mls/hr Q0M STAT IV 12/14/21 10:10 12/14/21 10:41 DC 12/14/21 10:34 Fluoxetine HCl (Prozac) 10 mg DAILY PO 12/15/21 09:00 01/14/22 08:59 12/16/21 08:46 Levothyroxine Sodium (Levothyroxine Sodium) 25 mcg ACB PO 12/15/21 06:30 01/14/22 06:29 12/16/21 06:44 Lisinopril (Zestril) 20 mg DAILY PO 12/15/21 09:00 01/14/22 08:59 12/16/21 08:47 Miscellaneous Medication (Namenda) 10 mg BID PO 12/14/21 21:00 01/13/22 20:59 12/16/21 08:46 Metoprolol Tartrate (Lopressor) 50 mg BID PO 12/14/21 21:00 01/13/22 20:59 12/16/21 08:47 Quetiapine Fumarate (Seroquel) 25 mg HS PO 12/14/21 21:00 01/13/22 20:59 12/15/21 21:07 Ascorbic Acid (Vitamin C) 500 mg DAILY PO 12/15/21 09:00 01/14/22 08:59 12/16/21 08:47 Zinc Sulfate (Zinc Sulfate) 220 mg DAILY PO 12/15/21 09:00 01/14/22 08:59 12/16/21 08:47 Ceftriaxone Sodium 1000 mg/ Sodium Chloride 100 ml @ 100 mls/hr Q24HRS IV 12/15/21 09:00 01/14/22 08:59 12/16/21 08:46 Acetaminophen (Tylenol) 325 mg Q4H PRN PO PAIN 1 - 3 12/14/21 14:00 01/13/22 13:59 12/16/21 02:20 Famotidine (Pepcid) 20 mg BIDAC PO 12/14/21 16:30 01/13/22 16:29 12/16/21 08:46 Dextrose 1,000 ml @ ud STK-MED ONCE .ROUTE 12/14/21 13:36 12/14/21 13:36 DC Famotidine (Pepcid) 20 mg STK-MED ONCE .ROUTE 12/14/21 15:30 12/14/21 15:30 DC Potassium Chloride (Potassium Chloride) 20 meq OT ONCE PO 12/15/21 08:30 12/15/21 08:35 DC 12/15/21 08:49 Potassium Chloride 100 ml @ 50 mls/hr STAT STAT IV 12/15/21 08:18 12/15/21 15:51 DC Vancomycin HCl 0.95 gm/Sodium Chloride 250 ml @ 175 mls/hr Q12H IV 12/15/21 12:00 12/15/21 11:58 DC Vancomycin HCl 1 gm/Sodium Chloride 250 ml @ 175 mls/hr Q12H IV 12/15/21 12:00 12/15/21 14:48 DC 12/15/21 12:11 Potassium Chloride 100 ml @ 50 mls/hr OT ONCE IV 12/15/21 17:00 12/15/21 18:59 DC 12/15/21 17:41 Assessment/Plan Assessment/Plan Assessment/Plan 86 yo F With past medical history of hypertension, hypothyroidism, dementia, among others was brought to the emergency room by her daughter with more confus ed than usual (there is some baseline dementia.) Has had a mild cough for perhaps a week or more. Patient tested positive for COVID-19. Patient also found to have UTI.Septic work-up done.Started on IV antibiotic.Patient is being admitted to hospital for further management. Today urine culture growing gram-positive cocci Awaiting ID and sensitivity. Plan Admit Septic work-up was done Continue IV antibiotics,Ceftriaxone, will add vancomycin, urine culture positive cocci, still awaiting ID and sensitivity IV fluids Reconcile home meds GI and DVT prophylaxis as appropriate Expect length of stay more than 1 midnight Case discussed with ED physician and patient daughter 12/16/2021 Patient daughter that her mother sounds more congested today.Also she thinks rekha t the patient is more confused than her baseline. Patient does not complain. Will get chest x-ray. I will hold IV fluids for now.Urine culture growing gram- positive organism, ID and sensitivity pending. Currently on IV vancomycin and ceftriaxone awaiting CT results Continue IV antibiotics, awaiting ID and sensitivity results Will hold IV fluids, Daughter concerned that the patient sounds more congested Will get chest x-ray and reassess Check BNP GI and DVT prophylaxis Disposition, continue inpatient management pending clinical improvement Case discussed with daughter Problems: (1) Metabolic encephalopathy Status: Acute ICD Code: G93.41 - Metabolic encephalopathy SNOMED: 65493835 (2) COVID-19 Status: Acute ICD Code: U07.1 - COVID-19 SNOMED: 931086911 (3) Urinary tract infection Status: Acute ICD Code: N39.0 - Urinary tract infection, site not specified SNOMED: 49037565 (4) Hypertension Status: Chronic ICD Code: I10 - Essential (primary) hypertension SNOMED: 66993951 (5) Hypothyroidism Status: Chronic ICD Code: E03.9 - Hypothyroidism, unspecified SNOMED: 25919013 (6) Dementia Status: Chronic ICD Code: F03.90 - Unspecified dementia, unspecified severity, without behavioral disturbance, psychotic disturbance, mood disturbance, and anxiety SNOMED: 50990352 MONIQUE BLANK MD Dec 16, 2021 10:24
--- NOTE | 2021-12-16 11:28 | DIET.OP ---
Nutrition Asmt/Malnutrit 2-17 Actual Date of Review: Dec 16, 2021 Actual Time Reviewed Asmt: 11:22 Nutritional Screening: Malnutr/Diet Consult Diagnosis: COViD 19, Metobolic Encephalopathy, Dementia, UTI, HTN Pertinent Medical Hx/Surgical: HTN, Hypothyrodism, Dementia Subjective Information: 86 yo female, presented increased congestion, more confused. Current Diet Order/Nutrition S: Cardiac Patient /S.O: Not Indicated Pertinent Meds Prozac, Levothyroxine, Zestril, Lopressor, Seroquel, Vit C, Tylenol, Pepcid. Pertinent Labs Hgb 10.9L, Hct 4.2L, Na+ 145, K+ 3.5L, BUN 8, Cr. 83, Glu 102, Ca+ 8.1, TP 5.8L, Alb 2.6L Height (Inches): 59 Current Weight: 140 %IBW: 147 Recent Weight Change: No Weight Status: Overweight GI Symptoms: None Food Allergies: No Cultural/Ethnic/Orthodox [place]: unknown Usual Diet at Home: regular Skin Integrity/Comment: Yes (skin intact) Current %PO: Can't Poor(25-49%) (41% x 3 meals) BEE in Kcals: Use Current Weight Calories/Kcals/K-30 Kcals Calculated: 2255-0686 Protein: Use Current Weight Protein g/k.1-1.3 Protein Calculated: 69-83 Fluid: ml: 5854-7940 (25-30) or per MD order Nutritional Problem: No Cur. Nutritional Probl Problems: Nutrition Deficit Riskj increaed chance of inadequate food/nutrients Etiology: Predicted suboptimal intake related to increased confusion Signs/Symptoms: as evidenced by poor PO intake 41% Food and Nutrition Intake (Sev: <50% est energy req 5days (41% x 3 meals) Fluid Accumulation (N/A): N/A Reduced Ambulette Driver Strength (N/A): N/A Protein-Calorie Malnutrition: N/A Malnutrition Related to Morbid: No Recommendations by RD: Increase Calorie Intake (Boost TID) RD Comments: PO intake poor, 41%, Recommend Boost TID. Expected Outcomes Stable with adequate hydration, skin integrity, labs WNL, PO intake > 75%, nutrition needs met within three days. Serum Albumin g/dl: 2.4-3.0 Moderate) Malnutrtion/Nutrition Risk Edu: No moderate nutrition risk RD Follow-Up Date: Dec 19, 2021 Notificiation Needed?: Yes (Boost TID) TY ANTON Dec 16, 2021 11:28
--- NOTE | 2021-12-16 12:50 | DIREP ---
PROCEDURE:CHEST 1 VIEW COMPARISON:[facility], CR, XRAY CHEST SINGLE VW, 12/14/2021, 07:40 AM. INDICATIONS:SHORTNESS OF BREATH/COUGH FINDINGS: LUNGS/PLEURA:No significant pulmonary parenchymal abnormalities. No effusions. VASCULATURE:Normal. Unremarkable pulmonary vasculature. CARDIAC:Normal. No cardiac silhouette abnormality or cardiomegaly. MEDIASTINUM:Calcified aorta. BONES:Degenerative change. OTHER:Negative. CONCLUSION:No acute pulmonary process. Dictated by: Mannie Blood M.D. on 12/16/2021 at 12:48 PM
[2021-12-16] MEDS: VANCOMYCIN 750 MG/150 ML BAG 150 ML IV SCH (12:52)
[2021-12-16 18:00] VITALS: BP 124/84
[2021-12-16 20:23] VITALS: BP 176/72
[2021-12-16] MEDS: SEROQUEL PO SCH (21:24)
--- NOTE | 2021-12-17 03:49 | NUR ---
PT EXPERIENCING MULTIPLE MUSCLE SPAMS TO LEFT THIGH, HOSPITALIST NOTIFIED, ORDER RECEIVED, WILL CONTINUE PLAN OF CARE.
[2021-12-17] MEDS ORDERED: FLEXERIL PO PRN (04:00)
[2021-12-17 04:46] VITALS: BP 169/73
[2021-12-17 05:52] LABS: CARBON DIOXIDE 19.2 mmol/L (20.0-32)
[2021-12-17] MEDS: LEVOTHYROXINE SODIUM PO SCH (06:08)
[2021-12-17] MEDS: NAMENDA PO SCH ×2 (08:42→21:03)
[2021-12-17] MEDS: PROZAC PO SCH (08:43)
[2021-12-17] MEDS: ZESTRIL PO SCH (08:43)
[2021-12-17] MEDS: ZINC SULFATE PO SCH (08:43)
[2021-12-17] MEDS: VITAMIN C PO SCH (08:43)
[2021-12-17] MEDS: LOPRESSOR PO SCH ×2 (08:43→21:03)
[2021-12-17] MEDS: PEPCID PO SCH ×2 (08:44→15:33)
[2021-12-17] MEDS: ROCEPHIN 1,000 MG in NS 100ML 100 ML IV SCH (08:52)
[2021-12-17 09:44] VITALS: BP 144/78
--- NOTE | 2021-12-17 10:00 | PRM.PN ---
PROGRESS NOTE SUBJECTIVE Pt seen and examined today. She was in bed, resting comfortably. She had no complaints. No acute events overnight other than loss of IV access and she was a difficult stick; unable to get simple peripheral IV access this morning either. OBJECTIVE General: Alert, No acute distress HEENT: Atraumatic, PERRLA Neck: Supple Lungs: Other (Diminished air entry both bases.) Heart: Regular rate, Normal S1, Normal S2 Abdomen: Normal bowel sounds, nontender Extremities: No clubbing, No cyanosis Skin: No significant lesion Neuro: Normal speech, Normal tone, Other (Moving extremities) Psych/Mental Status: Mood NL, mild dementia present VITALS Vital Signs Date Time Temp Pulse Resp B/P (MAP) Pulse Ox O2 Delivery O2 Flow Rate FiO2 12/17/21 09:44 98.0 70 18 144/78 (100) 96 Room Air* 0 21 LABS/XRAYS Laboratory Tests Test 12/17/21 05:15 Sodium Level 141 mmol/L Potassium Level 3.6 mmol/L Chloride Level 110.0 mmol/L Carbon Dioxide Level 19.2 mmol/L Glucose Level 84 mg/dL Blood Urea Nitrogen 9 mg/dL Creatinine 0.81 mg/dL Calcium Level 8.5 mg/dL Anion Gap 15.4 Estimated GFR () 81.1 Est GFR (CKD-EPI)(Non-Afr Ethiopian) 67.0 BUN/Creatinine Ratio 11.0 Current Medications Medications (Trade) Dose Ordered Sig/Jonny Route PRN Reason Start Time Stop Time Status Last Admin Dose Admin Acetaminophen (Tylenol) 500 mg STAT STAT PO 12/14/21 07:28 12/14/21 07:35 DC Ceftriaxone Sodium 2000 mg/ Sodium Chloride 100 ml @ 200 mls/hr STAT STAT IV 12/14/21 09:24 12/14/21 10:41 DC 12/14/21 09:32 Ceftriaxone Sodium (Rocephin) 1,000 mg STK-MED ONCE .ROUTE 12/14/21 09:36 12/14/21 09:37 DC Sodium Chloride 100 ml @ ud STK-MED ONCE IV 12/14/21 09:36 12/14/21 09:37 DC Sodium Chloride 1,000 ml @ 0 mls/hr Q0M STAT IV 12/14/21 10:10 12/14/21 10:41 DC 12/14/21 10:34 Fluoxetine HCl (Prozac) 10 mg DAILY PO 12/15/21 09:00 01/14/22 08:59 12/17/21 08:43 Levothyroxine Sodium (Levothyroxine Sodium) 25 mcg ACB PO 12/15/21 06:30 01/14/22 06:29 12/17/21 06:08 Lisinopril (Zestril) 20 mg DAILY PO 12/15/21 09:00 01/14/22 08:59 12/17/21 08:43 Miscellaneous Medication (Namenda) 10 mg BID PO 12/14/21 21:00 01/13/22 20:59 12/17/21 08:42 Metoprolol Tartrate (Lopressor) 50 mg BID PO 12/14/21 21:00 01/13/22 20:59 12/17/21 08:43 Quetiapine Fumarate (Seroquel) 25 mg HS PO 12/14/21 21:00 01/13/22 20:59 12/16/21 21:24 Ascorbic Acid (Vitamin C) 500 mg DAILY PO 12/15/21 09:00 01/14/22 08:59 12/17/21 08:43 Zinc Sulfate (Zinc Sulfate) 220 mg DAILY PO 12/15/21 09:00 01/14/22 08:59 12/17/21 08:43 Ceftriaxone Sodium 1000 mg/ Sodium Chloride 100 ml @ 100 mls/hr Q24HRS IV 12/15/21 09:00 01/14/22 08:59 12/16/21 08:46 Acetaminophen (Tylenol) 325 mg Q4H PRN PO PAIN 1 - 3 12/14/21 14:00 01/13/22 13:59 12/16/21 02:20 Famotidine (Pepcid) 20 mg BIDAC PO 12/14/21 16:30 01/13/22 16:29 12/17/21 08:44 Dextrose 1,000 ml @ ud STK-MED ONCE .ROUTE 12/14/21 13:36 12/14/21 13:36 DC Famotidine (Pepcid) 20 mg STK-MED ONCE .ROUTE 12/14/21 15:30 12/14/21 15:30 DC Potassium Chloride (Potassium Chloride) 20 meq OT ONCE PO 12/15/21 08:30 12/15/21 08:35 DC 12/15/21 08:49 Potassium Chloride 100 ml @ 50 mls/hr STAT STAT IV 12/15/21 08:18 12/15/21 15:51 DC Vancomycin HCl 0.95 gm/Sodium Chloride 250 ml @ 175 mls/hr Q12H IV 12/15/21 12:00 12/15/21 11:58 DC Vancomycin HCl 1 gm/Sodium Chloride 250 ml @ 175 mls/hr Q12H IV 12/15/21 12:00 12/15/21 14:48 DC 12/15/21 12:11 Potassium Chloride 100 ml @ 50 mls/hr OT ONCE IV 12/15/21 17:00 12/15/21 18:59 DC 12/15/21 17:41 Cyclobenzaprine HCl (Flexeril) 5 mg Q8 PRN PO MUSCLE SPASM 12/17/21 04:00 01/16/22 03:59 12/17/21 03:53 ASSESSMENT & PLAN Assessment/Plan 86 yo F With past medical history of hypertension, hypothyroidism, dementia, among others was brought to the emergency room by her daughter with more confused than usual (there is some baseline dementia.) Has had a mild cough for perhaps a week or more. Patient tested positive for COVID-19. Patient also found to have UTI.Septic work-up done.Started on IV antibiotic. Urine culture growing gram-positive cocci, still Awaiting ID and sensitivity. The last report from culture was 12/15/211035. This is delaying possible discharge Lost IV access - switching to keflex at this time as she has a significant abx allergy list, still awaiting ID and sensitivity as this is delaying care and discharge levothyroxine for hypiothyroidism Prozac seroquel as home med Memantidine for home meds GI and DVT prophylaxis as appropriate Problems: (1) Metabolic encephalopathy (2) COVID-19 (3) Urinary tract infection (4) Hypertension (5) Hypothyroidism (6) Dementia MILES GÓMEZ MD Dec 17, 2021 10:00
[2021-12-17] MEDS: VANCOMYCIN 750 MG/150 ML BAG 150 ML IV SCH (11:51)
[2021-12-17] MEDS: KEFLEX PO SCH ×2 (15:33→21:02)
[2021-12-17 16:17] VITALS: BP 133/66
[2021-12-17 19:25] VITALS: BP 172/68
[2021-12-17] MEDS: SEROQUEL PO SCH (21:02)
[2021-12-17 23:15] VITALS: BP 171/74
[2021-12-18 04:02] VITALS: BP 175/85
[2021-12-18] MEDS: LEVOTHYROXINE SODIUM PO SCH (05:30)
[2021-12-18] MEDS: PEPCID PO SCH (07:44)
[2021-12-18 08:00] VITALS: BP 158/59
[2021-12-18] MEDS: ZINC SULFATE PO SCH (09:18)
[2021-12-18] MEDS: ROCEPHIN 1,000 MG in NS 100ML 100 ML IV SCH (09:18)
[2021-12-18] MEDS: PROZAC PO SCH (09:18)
[2021-12-18] MEDS: KEFLEX PO SCH ×2 (09:19→13:23)
[2021-12-18] MEDS: VITAMIN C PO SCH (09:19)
[2021-12-18] MEDS: ZESTRIL PO SCH (09:19)
[2021-12-18] MEDS: LOPRESSOR PO SCH (09:19)
[2021-12-18] MEDS: NAMENDA PO SCH (09:20)
--- NOTE | 2021-12-18 10:22 | NUR ---
Verbal order from Dr. Johnston to discontinue Vancomycin and Rocephin. Orders entered.
[2021-12-18 12:00] VITALS: BP 158/59
[2021-12-18] MEDS ORDERED: CEPH250C PO (12:35)
--- NOTE | 2021-12-18 12:42 | PRM.DC ---
Subjective Subjective Date of Discharge: Dec 18, 2021 Time of Request to Discharge: 12:36 Subjective HOSPITAL COURSE: Patient is a n 86 yo lady (visiting from [place]) brought in by her daughter for increased confusion. Patient with PMH of Hypertension, Dementia, Hypothyroidism. In Er, found to have UTI, she had a mild cough and tested positive for COVID (reports mild symptoms for about 1 week). Please refer to H&P for further details. She was admitted, started on antibiotics and she improved. Await ID/send, Urine culture > 100,000 gram positive, ID Aerococcus - delay in getting sensitivities but as she was feeling better, she was stable for discharge home, if changes need to be made to her medications regimen, she will be contacted and she was okay with plan ( her daughter also agreed). All questions were answered to their satisfaction. Medications: per med rec Follow Up: with PCP ( in [place], 7-10 days) Activity - ad alex, recommend wearing mask when out for next week Diet: heart healthy Condition: good Disposition: home Patient History: Patient reports no known family medical history. Exam Vital Signs Vital Signs Date Time Temp Pulse Resp B/P (MAP) Pulse Ox O2 Delivery O2 Flow Rate FiO2 12/18/21 09:19 142/84 12/18/21 08:00 96.4 58 16 98 Room Air* 0 21 VTE VTE Risk Total Score: 3 VTE Risk Score VTE Risk: Score 0-1 = Low Risk (Aggressive mobilization; early ambulation; no VTE prophylaxis required) Score 2: Moderate Risk (Intermittent/Pneumatic Compression Device OR Lovenox/Heparin/Coumadin) Score 3-4: High Risk (Intermittent/Pneumatic Compression Device AND Lovenox/Heparin/Coumadin) Score > or =5: Highest Risk (Intermittent/Pneumatic Compression Device AND Lovenox/Heparin/Coumadin) Objective Vitals and I/O Vital Sign - Last 24 Hours 12/17/21 12/17/21 12/17/21 12/17/21 13:30 16:17 19:25 22:01 Temp 97.9 98.8 Pulse 66 58 Resp 18 18 B/P (MAP) 133/66 (88) 172/68 (102) Pulse Ox 94 99 O2 Delivery Room Air Room Air* Room Air* Room Air O2 Flow Rate 0.00 0 0 0.00 FiO2 21 21 12/17/21 12/18/21 12/18/21 12/18/21 23:15 04:02 08:00 08:00 Temp 98.0 97.7 96.4 Pulse 51 57 58 Resp 18 16 16 B/P (MAP) 171/74 (106) 175/85 (115) 158/59 (92) Pulse Ox 98 98 98 O2 Delivery Room Air* Room Air* Room Air Room Air* O2 Flow Rate 0 0 0.00 0 FiO2 21 21 21 12/18/21 09:19 B/P (MAP) 142/84 General: Alert, No acute distress HEENT: Atraumatic, PERRLA Neck: Supple Lungs: Other (Diminished air entry both bases.) Heart: Regular rate, Normal S1, Normal S2 Abdomen: Normal bowel sounds, Other (Mild distention) Extremities: No clubbing, No cyanosis Skin: No significant lesion Neuro: Normal speech, Normal tone, Other (Moving extremities) Psych/Mental Status: Mood NL All Results(Lab/Rad) Laboratory Tests Test 12/16/21 08:20 White Blood Count 5.2 10^3/uL Red Blood Count 3.67 10^6/uL Hemoglobin 10.9 g/dL Hematocrit 34.2 % Mean Corpuscular Volume 93.2 fL Mean Corpuscular Hemoglobin 29.7 pg Mean Corpuscular Hemoglobin Concent 31.9 g/dL Red Cell Distribution Width 15.3 % Platelet Count 139 10^3/uL Mean Platelet Volume 11.4 fL Neutrophils (%) (Auto) 63.2 % Lymphocytes (%) (Auto) 23.9 % Monocytes (%) (Auto) 10.2 % Neutrophils # (Auto) 3.3 10^3/uL Lymphocytes # (Auto) 1.25 10^3/uL1 Monocytes # (Auto) 0.5 10^3/uL Absolute Immature Granulocyte (auto 0.01 10^3 u/L Absolute Eosinophils (auto) 0.1 10^3/uL Immature Granulocytes % 0.20 % Eosinophils % 2.1 % Basophils % 0.4 % Basophils # 0.0 10^3/uL Sodium Level 143 mmol/L Potassium Level 3.5 mmol/L Chloride Level 110.0 mmol/L Carbon Dioxide Level 24.5 mmol/L Glucose Level 102 mg/dL Blood Urea Nitrogen 8 mg/dL Creatinine 0.83 mg/dL Calcium Level 8.1 mg/dL Anion Gap 12.0 Estimated GFR () 78.9 Est GFR (CKD-EPI)(Non-Afr [place]) 65.2 BUN/Creatinine Ratio 9.0 Current Medications Medications (Trade) Dose Ordered Sig/Jonny Route PRN Reason Start Time Stop Time Status Last Admin Dose Admin Acetaminophen (Tylenol) 500 mg STAT STAT PO 12/14/21 07:28 12/14/21 07:35 DC Ceftriaxone Sodium 2000 mg/ Sodium Chloride 100 ml @ 200 mls/hr STAT STAT IV 12/14/21 09:24 12/14/21 10:41 DC 12/14/21 09:32 Ceftriaxone Sodium (Rocephin) 1,000 mg STK-MED ONCE .ROUTE 12/14/21 09:36 12/14/21 09:37 DC Sodium Chloride 100 ml @ ud STK-MED ONCE IV 12/14/21 09:36 12/14/21 09:37 DC Sodium Chloride 1,000 ml @ 0 mls/hr Q0M STAT IV 12/14/21 10:10 12/14/21 10:41 DC 12/14/21 10:34 Fluoxetine HCl (Prozac) 10 mg DAILY PO 12/15/21 09:00 01/14/22 08:59 12/16/21 08:46 Levothyroxine Sodium (Levothyroxine Sodium) 25 mcg ACB PO 12/15/21 06:30 01/14/22 06:29 12/16/21 06:44 Lisinopril (Zestril) 20 mg DAILY PO 12/15/21 09:00 01/14/22 08:59 12/16/21 08:47 Miscellaneous Medication (Namenda) 10 mg BID PO 12/14/21 21:00 01/13/22 20:59 12/16/21 08:46 Metoprolol Tartrate (Lopressor) 50 mg BID PO 12/14/21 21:00 01/13/22 20:59 12/16/21 08:47 Quetiapine Fumarate (Seroquel) 25 mg HS PO 12/14/21 21:00 01/13/22 20:59 12/15/21 21:07 Ascorbic Acid (Vitamin C) 500 mg DAILY PO 12/15/21 09:00 01/14/22 08:59 12/16/21 08:47 Zinc Sulfate (Zinc Sulfate) 220 mg DAILY PO 12/15/21 09:00 01/14/22 08:59 12/16/21 08:47 Ceftriaxone Sodium 1000 mg/ Sodium Chloride 100 ml @ 100 mls/hr Q24HRS IV 12/15/21 09:00 01/14/22 08:59 12/16/21 08:46 Acetaminophen (Tylenol) 325 mg Q4H PRN PO PAIN 1 - 3 12/14/21 14:00 01/13/22 13:59 12/16/21 02:20 Famotidine (Pepcid) 20 mg BIDAC PO 12/14/21 16:30 01/13/22 16:29 12/16/21 08:46 Dextrose 1,000 ml @ ud STK-MED ONCE .ROUTE 12/14/21 13:36 12/14/21 13:36 DC Famotidine (Pepcid) 20 mg STK-MED ONCE .ROUTE 12/14/21 15:30 12/14/21 15:30 DC Potassium Chloride (Potassium Chloride) 20 meq OT ONCE PO 12/15/21 08:30 12/15/21 08:35 DC 12/15/21 08:49 Potassium Chloride 100 ml @ 50 mls/hr STAT STAT IV 12/15/21 08:18 12/15/21 15:51 DC Vancomycin HCl 0.95 gm/Sodium Chloride 250 ml @ 175 mls/hr Q12H IV 12/15/21 12:00 12/15/21 11:58 DC Vancomycin HCl 1 gm/Sodium Chloride 250 ml @ 175 mls/hr Q12H IV 12/15/21 12:00 12/15/21 14:48 DC 12/15/21 12:11 Potassium Chloride 100 ml @ 50 mls/hr OT ONCE IV 12/15/21 17:00 12/15/21 18:59 DC 12/15/21 17:41 Medication Reconciliation Scheduled Cephalexin (Cephalexin), 250 MG PO TID Fluoxetine Hcl (Fluoxetine Hcl), 1 CAP PO DAILY, (Reported) Levothyroxine Sodium (Levothyroxine Sodium), 1 TAB PO DAILY, (Reported) Lisinopril (Lisinopril), 1 TAB PO DAILY, (Reported) Memantine Hcl (Namenda), 1 TAB PO BID, (Reported) Metoprolol Tartrate 50MG (Lopresser 50MG), 1 TAB PO BID, (Reported) Quetiapine Fumarate (Seroquel), 1 TAB PO HS, (Reported) Plan Plan My Orders - FAUSTO ALBERTO MD Procedure Category Date Status Time Discharge DISCHARGE 12/18/21 Transmitted 12:33 FAUSTO ALBERTO MD Dec 18, 2021 12:42
[2021-12-18 13:20] VITALS: BP 138/82
--- NOTE | 2021-12-18 13:20 | NUR ---
antibiotic given prior to discharge discharge instructions verbal and written given to pt and daughter. Dr Dominguez instructed nurse to give Keflex prior to discharge. given as instructed. see [email or web address]
== END 2021-12-18 13:20 | disposition home or self-care (01) | DRG 177 ==
LOC: EDBD 07:26 → ER 07:26 → EDUNIT# 07:26 → MS 10:31
PROVIDERS: ADMIT Internal Medicine; ATTEND Internal Medicine
DX: U07.1 COVID-19 (principal); G93.41 Metabolic encephalopathy; N39.0 Urinary tract infection, site not specified; E03.9 Hypothyroidism, unspecified; F03.90 Unspecified dementia, unspecified severity, without behavioral disturbance, psychotic disturbance, mood disturbance, and anxiety; I10 Essential (primary) hypertension; Z90.710 Acquired absence of both cervix and uterus; Z88.8 Allergy status to other drugs, medicaments and biological substances; Z88.0 Allergy status to penicillin; Z88.1 Allergy status to other antibiotic agents
CPT/HCPCS: 36415; 71045; 80048; 80053; 81001; 83880; 85025; 87086; 87186; 87426; 97162; 97166; 99285; G0378; J0696; J3370; J3490; J7030; J7050; J7070; 97116-GP; 97535-GO; J3480

== ENCOUNTER 2023-01-05 12:02 | Emergency (ER) | payer MEDICARE ==
[~2023-01-05] VITALS: Ht 147.3 cm; Wt 59.0 kg
[2023-01-05 12:02] VITALS: BP 133/73; PULSE 65; RESP 18; TEMP 98.2; O2SAT 96
[~2023-01-05 12:02] MED LIST: CEPH250C PO; FLUO10CA17 PO; LEVO25TA4 PO; LISI20TA21 PO; MEMA10TA PO; METO50TA6 PO; QUET25TA5 PO
[2023-01-05] MEDS ORDERED: MEMA10TA PO (12:45)
[2023-01-05] MEDS ORDERED: QUET25TA5 PO (12:52)
[2023-01-05] MEDS ORDERED: LISI20TA21 PO (12:52)
[2023-01-05] MEDS ORDERED: AMLO-169 PO (12:52)
[2023-01-05 13:11] LABS: BASOPHIL % 0.3 % (0.0-0.2); EOSINOPHIL % 0.3 % (0.0-5.0); HEMATOCRIT(ML) 37.3 % (36.0-46.0); HEMOGLOBIN 12.3 g/dL (12.0-15.0); LYMPHOCYTES # 0.96 10^3/uL1 (1.0-4.8); LYMPHOCYTES % 8.1 % (24.0-44.0); MEAN CORP HGB 30.2 pg (26-34); MEAN CORP VOLUME 91.6 fL (78-100); MONOCYTES # 0.6 10^3/uL (0.3-0.8); MONOCYTES % 5.2 % (5.0-12.0); NEUTROPHIL # 10.2 10^3/uL (1.8-7.7); NEUTROPHILS % 85.9 % (41.0-85.0); PLATELET COUNT 216 10^3/uL (150-400); RED BLOOD CELL 4.07 10^6/uL (4.00-5.20); RED CELL DISTRIBUTION WIDTH 14.9 % (11.5-14.5); WHITE BLOOD CELL 11.9 10^3/uL (4.5-11.0)
[2023-01-05 13:12] LABS: +ADD MANUAL DIFF(NO CHRG) NO
[2023-01-05 13:14] VITALS: BP 115/63; PULSE 61; RESP 18; TEMP 98.2; O2SAT 96
[2023-01-05 13:14] LABS: BILIRUBIN,URINE 1+ (NEGATIVE); LEUKOCYTE ESTERASE ,URINE 3+ (NEGATIVE); NITRATE,URINE NEGATIVE (NEGATIVE); PH,URINE 5.5 (4.5-8.0); UROBILINOGEN,URINE 0.2 E.U./dL (0.2)
[2023-01-05 13:19] LABS: APPEARANCE,URINE TURBID; UA COLOR YELLOW
[2023-01-05 13:27] LABS: ALBUMIN(ML) 3.6 g/dL (3.4-5.0); ALBUMIN/GLOBULIN RATIO 1.09; ANION GAP 15.6; BUN/CREATININE RATIO 15.38 (10.0-20.0); CALCIUM 9.8 mg/dL (8.4-10.5); CARBON DIOXIDE 21.6 mmol/L (20.0-32); CREATININE SERUM 1.56 mg/dL (0.59-1.40); EST GFR, NON-AA 31.4 (>/=60); POTASSIUM 4.2 mmol/L (3.6-5.2)
[2023-01-05] MEDS ORDERED: OMNICEF PO STA (14:22)
[2023-01-05] MEDS ORDERED: OMNICEF PO ONE (14:27)
[2023-01-05 14:33] VITALS: BP 110/46; PULSE 61; RESP 18; O2SAT 97
== END 2023-01-05 14:36 | disposition home or self-care (01) ==
LOC: ER 12:02
DX: N39.0 Urinary tract infection, site not specified (principal); E07.9 Disorder of thyroid, unspecified; F03.90 Unspecified dementia, unspecified severity, without behavioral disturbance, psychotic disturbance, mood disturbance, and anxiety; I10 Essential (primary) hypertension; Z88.0 Allergy status to penicillin; Z88.1 Allergy status to other antibiotic agents; Z88.2 Allergy status to sulfonamides
CPT/HCPCS: 36415; 80053; 81001; 83605; 85025; 87040; 87077; 87086; 87186; 99284

== ENCOUNTER 2024-01-13 14:22 | Emergency (ER) | payer MEDICARE ==
[~2024-01-13 14:22] MED LIST changes: +AMLO-169 PO; -FLUO10CA17 PO; +[UNRECOGNIZED DRUG - CODE] PO
[2024-01-13] MEDS ORDERED: ASPI-667 PO (16:04)
== END 2024-01-13 17:18 | disposition still patient (30) ==
LOC: ER 14:22
DX: S70.02XA Contusion of left hip, initial encounter (principal); N39.0 Urinary tract infection, site not specified; M16.12 Unilateral primary osteoarthritis, left hip; F03.90 Unspecified dementia, unspecified severity, without behavioral disturbance, psychotic disturbance, mood disturbance, and anxiety; I10 Essential (primary) hypertension; E07.9 Disorder of thyroid, unspecified; Z90.49 Acquired absence of other specified parts of digestive tract; Z90.710 Acquired absence of both cervix and uterus; Z88.0 Allergy status to penicillin; Z88.2 Allergy status to sulfonamides; Z88.3 Allergy status to other anti-infective agents; Z79.82 Long term (current) use of aspirin; Z79.899 Other long term (current) drug therapy; X58.XXXA Exposure to other specified factors, initial encounter; Y93.89 Activity, other specified; Y92.89 Other specified places as the place of occurrence of the external cause; Y99.8 Other external cause status
CPT/HCPCS: 99285; 70450; 71045; 87086; 72170; 72192; 73070; 80053; 85025; 36415; 85379; 84484; 82553; 81001; 83880; 82550; 84443; 87186; 93005; J0696 ×2

== ENCOUNTER 2024-01-13 14:22 | Inpatient (IN) | payer MEDICARE ==
[~2024-01-13] VITALS: Ht 149.9 cm; Wt 59.4 kg
[2024-01-13] VITALS (9 sets, daily range): BP systolic 130–173; BP diastolic 55–71; PULSE 54–59; RESP 16–18; TEMP 97.1–97.8; O2SAT 92–97
[2024-01-13 14:50] LABS: BASOPHIL % 0.3 % (0.1-1.2); EOSINOPHIL # 0.1 10^3/uL (0.0-0.2); EOSINOPHIL % 1.8 % (0.0-5.0); HEMATOCRIT(ML) 37.9 % (36.0-46.0); HEMOGLOBIN 11.8 g/dL (12.0-15.0); LYMPHOCYTES # 1.74 10^3/uL1 (1.0-4.8); LYMPHOCYTES % 25.7 % (24.0-44.0); MEAN CORP HGB 28.1 pg (26-34); MEAN CORP HGB CONCENTRATION 31.1 g/dL (33-36.5); MEAN CORP VOLUME 90.2 fL (78-100); MONOCYTES # 0.5 10^3/uL (0.3-0.8); NEUTROPHIL # 4.4 10^3/uL (1.8-7.7); NEUTROPHILS % 64.2 % (41.0-85.0); PLATELET COUNT 218 10^3/uL (150-400); RED CELL DISTRIBUTION WIDTH 15.5 % (11.5-14.5); WHITE BLOOD CELL 6.8 10^3/uL (4.5-11.0)
[2024-01-13 14:52] LABS: +ADD MANUAL DIFF(NO CHRG) NO
[2024-01-13 15:41] LABS: ALBUMIN(ML) 3.3 g/dL (3.4-5.0); BUN/CREATININE RATIO 17.2 (10.0-20.0); CALCIUM 8.7 mg/dL (8.4-10.5); CREATINE KINASE MB 0.7 ng/mL (0.5-3.6); CREATININE SERUM 0.93 mg/dL (0.59-1.40); EST GFR, NON-AA 56.9 (>/=60)
[2024-01-13] MEDS ORDERED: ASPI-667 PO (16:04)
[2024-01-13 16:06] LABS: BILIRUBIN,URINE NEGATIVE (NEGATIVE); LEUKOCYTE ESTERASE ,URINE 2+ (NEGATIVE); NITRATE,URINE POSITIVE (NEGATIVE); PH,URINE 6.5 (4.5-8.0); UROBILINOGEN,URINE 0.2 E.U./dL (0.2)
[2024-01-13 16:10] LABS: APPEARANCE,URINE CLOUDY; UA COLOR YELLOW
[2024-01-13] MEDS ORDERED: ROCEPHIN ONE (16:50)
[2024-01-13] MEDS ORDERED: NS 100ML 100 ML IV ONE (16:50)
[2024-01-13] MEDS: ROCEPHIN 1,000 MG in NS 100ML 100 ML IV STA (16:56)
[2024-01-13] MEDS: HEPARIN SQ SCH (20:51)
[2024-01-13] MEDS: ZESTRIL PO SCH (20:51)
[2024-01-13] MEDS: NORVASC PO SCH (20:51)
[2024-01-13] MEDS: SEROQUEL PO SCH (20:51)
[2024-01-13] MEDS: LOPRESSOR PO SCH (20:51)
[2024-01-13] MEDS ORDERED: ZOFRAN IV PRN (21:00)
[2024-01-13] MEDS ORDERED: APRESOLINE IV PRN (21:00)
[2024-01-13] MEDS ORDERED: ULTRAM PO PRN (21:00)
[2024-01-13] MEDS ORDERED: TYLENOL PO PRN (21:00)
[2024-01-13] MEDS ORDERED: MORPHINE SULFATE IV PRN (21:00)
[2024-01-14] VITALS (7 sets, daily range): BP systolic 108–169; BP diastolic 36–67; PULSE 55–68; RESP 16–20; TEMP 97–98.2; O2SAT 92–97
[2024-01-14 07:43] LABS: HEMATOCRIT(ML) 34.3 % (36.0-46.0); MEAN CORP HGB 28.3 pg (26-34); MEAN CORP HGB CONCENTRATION 32.1 g/dL (33-36.5); MEAN CORP VOLUME 88.2 fL (78-100); RED BLOOD CELL 3.89 10^6/uL (4.00-5.20); RED CELL DISTRIBUTION WIDTH 15.8 % (11.5-14.5); WHITE BLOOD CELL 5.8 10^3/uL (4.5-11.0)
[2024-01-14 08:29] LABS: ANION GAP 13.1; BUN/CREATININE RATIO 15.66 (10.0-20.0); CALCIUM 8.4 mg/dL (8.4-10.5); CARBON DIOXIDE 24.5 mmol/L (20.0-32); CREATININE SERUM 0.83 mg/dL (0.59-1.40); EST GFR, NON-AA 64.9 (>/=60); POTASSIUM 3.6 mmol/L (3.6-5.2)
[2024-01-14] MEDS ORDERED: ROCEPHIN IV SCH (09:00)
[2024-01-14] MEDS ORDERED: ROCEPHIN ONE ×2 (09:30→11:29)
[2024-01-14] MEDS ORDERED: NS 100ML 100 ML IV ONE (09:31)
[2024-01-14] MEDS: PROTONIX IV IV SCH (09:38)
[2024-01-14] MEDS: ASPIRIN PO SCH (09:39)
[2024-01-14] MEDS: SYNTHROID PO SCH (09:40)
[2024-01-14] MEDS: PROZAC PO SCH (09:41)
[2024-01-14] MEDS: ROCEPHIN 2,000 MG in NS 100ML 100 ML IV SCH (11:30)
[2024-01-14] MEDS: ZYPREXA ZYDIS SL ONE (15:19)
[2024-01-14] MEDS ORDERED: ATIVAN IV PRN (15:30)
[2024-01-14] MEDS: NYSTOP TP SCH (21:49)
[2024-01-15 00:46] VITALS: BP 108/36; PULSE 56; RESP 18; TEMP 97.3; O2SAT 95
[2024-01-15 04:37] VITALS: BP 144/106; PULSE 52; RESP 19; TEMP 97.4; O2SAT 94
[2024-01-15 06:46] LABS: HEMATOCRIT(ML) 33.5 % (36.0-46.0); HEMOGLOBIN 10.9 g/dL (12.0-15.0); MEAN CORP HGB 28.8 pg (26-34); MEAN CORP HGB CONCENTRATION 32.5 g/dL (33-36.5); MEAN CORP VOLUME 88.4 fL (78-100); RED BLOOD CELL 3.79 10^6/uL (4.00-5.20); RED CELL DISTRIBUTION WIDTH 15.6 % (11.5-14.5); WHITE BLOOD CELL 5.1 10^3/uL (4.5-11.0)
[2024-01-15 06:53] LABS: ANION GAP 13.3; BUN/CREATININE RATIO 16.27 (10.0-20.0); CARBON DIOXIDE 26.5 mmol/L (20.0-32); CREATININE SERUM 0.86 mg/dL (0.59-1.40); EST GFR, NON-AA 62.3 (>/=60); POTASSIUM 3.8 mmol/L (3.6-5.2)
[2024-01-15 08:28] VITALS: BP 160/61; PULSE 66; RESP 18; TEMP 97; O2SAT 92
[2024-01-15] MEDS ORDERED: NS 100ML 100 ML IV ONE (10:00)
[2024-01-15] MEDS ORDERED: ROCEPHIN ONE (10:01)
[2024-01-15 12:12] VITALS: BP 170/63; PULSE 63; RESP 20; TEMP 97; O2SAT 93
[2024-01-15 16:00] VITALS: BP 156/57; PULSE 53; RESP 20; TEMP 98.1; O2SAT 97
[2024-01-15] MEDS ORDERED: CEPH500C PO (16:51)
[2024-01-15 19:29] VITALS: BP 149/56; PULSE 56; RESP 18; TEMP 97.8; O2SAT 94
[2024-01-15] MEDS: ZYPREXA ZYDIS SL PRN (21:07)
[2024-01-16 03:43] VITALS: BP 144/56; PULSE 60; RESP 18; TEMP 97.9; O2SAT 96
[2024-01-16 07:17] VITALS: BP 150/53; PULSE 56; RESP 18; TEMP 97.4; O2SAT 96
[2024-01-16 10:33] VITALS: BP 150/53; PULSE 56; RESP 18; TEMP 97.4; O2SAT 96
== END 2024-01-16 09:48 | disposition home or self-care (01) | DRG 605 ==
LOC: ER 14:22 → EDBD 14:22 → UNDOADMOB 17:18 → MS 17:18 → INTOOBSV 17:18 → OBS 17:18 → OBSVTOIN 17:18
PROVIDERS: ADMIT Student in an Organized Health Care Education/Training Program; ATTEND Student in an Organized Health Care Education/Training Program
DX: S70.02XA Contusion of left hip, initial encounter (principal); N39.0 Urinary tract infection, site not specified; M16.12 Unilateral primary osteoarthritis, left hip; E03.9 Hypothyroidism, unspecified; F03.90 Unspecified dementia, unspecified severity, without behavioral disturbance, psychotic disturbance, mood disturbance, and anxiety; I10 Essential (primary) hypertension; E07.9 Disorder of thyroid, unspecified; Z79.82 Long term (current) use of aspirin; Z88.0 Allergy status to penicillin; Z88.1 Allergy status to other antibiotic agents; Z88.2 Allergy status to sulfonamides; Z88.3 Allergy status to other anti-infective agents; Z90.710 Acquired absence of both cervix and uterus; Z90.49 Acquired absence of other specified parts of digestive tract; Z79.899 Other long term (current) drug therapy
CPT/HCPCS: 36415; 70450; 71045; 72170; 72192; 80048; 80053; 81001; 82306; 82550; 82553; 83880; 84443; 84484; 85025; 85027; 85379; 87086; 87186; 93005; 97162; 97166; 97530; 99285; J0696; J1644; J2470; 73070-RT; 97535-GO; C9113

== ENCOUNTER 2024-02-28 11:49 | Emergency (ER) | payer MEDICARE ==
[~2024-02-28] VITALS: Ht 149.9 cm; Wt 56.7 kg
[2024-02-28 11:49] VITALS: BP 153/68; PULSE 53; RESP 18; TEMP 97.6; O2SAT 96
[~2024-02-28 11:49] MED LIST changes: +ASPI-667 PO; +CEPH500C PO
[2024-02-28] MEDS ORDERED: NITROSTAT SL PRN (12:00)
[2024-02-28 12:04] LABS: +ADD MANUAL DIFF(NO CHRG) NO; BASOPHIL % 0.4 % (0.1-1.2); EOSINOPHIL # 0.2 10^3/uL (0.0-0.2); EOSINOPHIL % 2.9 % (0.0-5.0); HEMATOCRIT(ML) 37.4 % (36.0-46.0); HEMOGLOBIN 11.9 g/dL (12.0-15.0); LYMPHOCYTES # 1.98 10^3/uL1 (1.0-4.8); LYMPHOCYTES % 27.4 % (24.0-44.0); MEAN CORP HGB CONCENTRATION 31.8 g/dL (33-36.5); MONOCYTES # 0.5 10^3/uL (0.3-0.8); MONOCYTES % 7.2 % (5.0-12.0); NEUTROPHIL # 4.5 10^3/uL (1.8-7.7); PLATELET COUNT 239 10^3/uL (150-400); RED BLOOD CELL 4.25 10^6/uL (4.00-5.20); WHITE BLOOD CELL 7.2 10^3/uL (4.5-11.0)
[2024-02-28 12:34] LABS: ALANINE AMINOTRANSFERASE(ML) 9 U/L (12-78); ALBUMIN(ML) 3.2 g/dL (3.4-5.0); ALBUMIN/GLOBULIN RATIO 0.914; ALKALINE PHOSPHATASE 74 U/L (50-136); ANION GAP 12.1; ASPARTATE AMINO TRANSFERASE 15 U/L (0-35); CALCIUM 8.7 mg/dL (8.4-10.5); CARBON DIOXIDE 25.9 mmol/L (20.0-32); CREATINE KINASE 37 U/L (26-192); CREATININE SERUM 0.87 mg/dL (0.59-1.40); EST GFR, NON-AA 61.4 (>/=60); GLUCOSE 92 mg/dL (74-106); SODIUM 145 mmol/L (132-145); TROPONIN I HIGH SENSITIVITY 8 ng/L (0-50)
[2024-02-28 12:49] LABS: CREATINE KINASE MB < 0.5 ng/mL (0.5-3.6)
[2024-02-28 14:47] VITALS: BP 166/69; PULSE 55; RESP 18; TEMP 97.6; O2SAT 96
[2024-02-28 17:00] VITALS: BP 189/87; PULSE 52; RESP 20; TEMP 98; O2SAT 96
[2024-02-28] MEDS ORDERED: OFIRMEV 1000 MG/100 ML 100 ML IV PRN ×2 (17:00→22:30)
[2024-02-28] MEDS ORDERED: MORPHINE SULFATE IV PRN (17:00)
[2024-02-28] MEDS ORDERED: ZOFRAN IV PRN (17:00)
[2024-02-28] MEDS ORDERED: ULTRAM PO PRN (17:00)
[2024-02-28] MEDS ORDERED: NYSTOP TP PRN (17:30)
[2024-02-28] MEDS: APRESOLINE IV PRN (17:42)
[2024-02-28 20:00] VITALS: BP 119/65; PULSE 62; RESP 17; TEMP 97.6; O2SAT 99
[2024-02-28] MEDS ORDERED: FLUO10TA27 PO (23:22)
[2024-02-28] MEDS ORDERED: PROZAC ONE (23:46)
[2024-02-28] MEDS: SEROQUEL PO SCH (23:55)
[2024-02-29] VITALS: BP 156/54; PULSE 62; RESP 17; TEMP 97.5; O2SAT 99
[2024-02-29] MEDS: PROZAC PO ONE (00:51)
[2024-02-29 04:00] VITALS: BP 149/63; PULSE 56; RESP 17; TEMP 98; O2SAT 98
[2024-02-29 04:58] LABS: BASOPHIL # 0.1 10^3/uL (0.0-0.1); BASOPHIL % 0.9 % (0.1-1.2); EOSINOPHIL # 0.2 10^3/uL (0.0-0.2); EOSINOPHIL % 3.1 % (0.0-5.0); HEMATOCRIT(ML) 34.3 % (36.0-46.0); HEMOGLOBIN 11.4 g/dL (12.0-15.0); LYMPHOCYTES # 2.27 10^3/uL1 (1.0-4.8); LYMPHOCYTES % 32.5 % (24.0-44.0); MEAN CORP HGB 28.9 pg (26-34); MEAN CORP HGB CONCENTRATION 33.2 g/dL (33-36.5); MEAN CORP VOLUME 86.8 fL (78-100); MONOCYTES # 0.5 10^3/uL (0.3-0.8); MONOCYTES % 7.6 % (5.0-12.0); NEUTROPHIL # 3.9 10^3/uL (1.8-7.7); NEUTROPHILS % 55.9 % (41.0-85.0); PLATELET COUNT 230 10^3/uL (150-400); RED BLOOD CELL 3.95 10^6/uL (4.00-5.20); RED CELL DISTRIBUTION WIDTH 16.1 % (11.5-14.5)
[2024-02-29 05:03] LABS: +ADD MANUAL DIFF(NO CHRG) NO
[2024-02-29 05:17] LABS: ALBUMIN(ML) 3.1 g/dL (3.4-5.0); ALBUMIN/GLOBULIN RATIO 0.939; ANION GAP 11.2; BUN/CREATININE RATIO 19.56 (10.0-20.0); CALCIUM 8.8 mg/dL (8.4-10.5); CARBON DIOXIDE 27.2 mmol/L (20.0-32); CREATININE SERUM 0.92 mg/dL (0.59-1.40); EST GFR, NON-AA 57.6 (>/=60); POTASSIUM 3.4 mmol/L (3.6-5.2)
[2024-02-29 07:57] VITALS: BP 141/65; PULSE 64; RESP 18; TEMP 97.7; O2SAT 97
[2024-02-29] MEDS ORDERED: PROZAC PO SCH (09:20)
[2024-02-29] MEDS ORDERED: CEFD300C2 PO (09:48)
[2024-02-29] MEDS ORDERED: DOXY100C5 PO (09:48)
[2024-02-29] MEDS: NON-FORMULARY MEDICATION 1 EA EA PO SCH (10:00)
[2024-02-29 10:10] LABS: BILIRUBIN,URINE NEGATIVE (NEGATIVE); LEUKOCYTE ESTERASE ,URINE 2+ (NEGATIVE); NITRATE,URINE NEGATIVE (NEGATIVE); UROBILINOGEN,URINE 0.2 E.U./dL (0.2)
[2024-02-29 10:16] LABS: APPEARANCE,URINE CLOUDY; UA COLOR YELLOW
[2024-02-29 11:11] VITALS: BP 120/58; PULSE 62; RESP 18; TEMP 97.9; O2SAT 98
[2024-02-29 12:20] VITALS: BP 120/58; PULSE 62; RESP 18; TEMP 97.9; O2SAT 98
== END 2024-02-29 12:20 | disposition home or self-care (01) ==
LOC: ER 11:49 → OBS 15:31
PROVIDERS: ADMIT Student in an Organized Health Care Education/Training Program; ATTEND Student in an Organized Health Care Education/Training Program
DX: J98.4 Other disorders of lung (principal); R07.81 Pleurodynia; F03.90 Unspecified dementia, unspecified severity, without behavioral disturbance, psychotic disturbance, mood disturbance, and anxiety; R00.1 Bradycardia, unspecified; I10 Essential (primary) hypertension; E78.00 Pure hypercholesterolemia, unspecified; Z88.0 Allergy status to penicillin; Z88.2 Allergy status to sulfonamides; Z88.5 Allergy status to narcotic agent; Z88.8 Allergy status to other drugs, medicaments and biological substances; Z91.011 Allergy to milk products; Z79.899 Other long term (current) drug therapy; Z90.710 Acquired absence of both cervix and uterus
CPT/HCPCS: 96374; 99285; 71045; 71275; 80053 ×2; 85025 ×2; 36415 ×2; 85379; 84484; 82553; 83880; 82550; 93005; 87086; 81001; 84443; G0378 ×20; J0360; J0131; Q9965; 87077; 87186